=== PATIENT | female | born 1965 ===

== ENCOUNTER 2018-08-25 15:08 | Outpatient (CLI) | payer OTHER | END 2018-08-25 15:09 | disposition home or self-care (01) | LOC: C.USIC 15:08 | DX: D25.9 Leiomyoma of uterus, unspecified (principal) ==

== ENCOUNTER 2018-11-09 13:43 | Outpatient (CLI) | payer OTHER | END 2018-11-09 13:44 | disposition home or self-care (01) | LOC: C.MAMMO 13:44 | DX: Z12.31 Encounter for screening mammogram for malignant neoplasm of breast (principal) ==